=== PATIENT | male | born 1965 | race Caucasian/White ===

== ENCOUNTER → 2017-06-24 | Day surgery (SDC) | payer BC ==
--- NOTE | 2017-06-20 16:20 | Diagnostic Imaging Report ---
PROCEDURE: X-RAY CHEST, TWO VIEWS COMPARISON: None. INDICATIONS: PRE-OP ON LEFT FOOT FINDINGS: LUNGS: Well-inflated. No mass or infiltrate. PLEURA: No effusions or pneumothorax. HEART \T\ MEDIASTINUM: The heart is within normal size-limits. BONES \T\ SOFT TISSUES: No focal osseous lesions. There are mild degenerative changes of the thoracic spine. Soft tissues are unremarkable.. CONCLUSION: No acute thoracic abnormality. Dictated by: Karishma Pryor M.D. on 06/20/2017 at 16:20 Electronically approved by: Karishma Pryor M.D. on 06/20/2017 at 16:20
[~2017-06-24] MED LIST: BUPIVACAINE HCL 0.5% 10ML MPF VIAL INJ ONE; CEFAZOLIN SOD 2 GM/D5W 50ML 50 ML IV ONE; DEXAMETHASONE SOD PHOS INJ 4 MG/ML VIAL ONE; FENTANYL CITRATE/PF 100MCG/2 ML INJ ONE; LIDOCAINE HCL 2% LOCAL INJ 5 ML SDV VIAL INJ ONE; MIDAZOLAM HCL 2 MG/2 ML VIAL ONE; NEOSTIGMINE 1 MG/ML 10ML VIAL ONE; ONDANSETRON HCL INJ 2 MG/ML VIAL ONE; PROPOFOL IV EMULSION 10 MG/ML 20 ML VIAL ONE; SEVOFLURANE INHAL SOLN 250 ML PEN BTL ONE
--- OUTSIDE RECORDS SUMMARY | 2017-06-24 05:57 | XMS REPORT ---
Author Author [facility] Address Unknown Phone Unavailable Care Team Providers Care Tour Counselor Name Role Phone CHRISTA DAWKINS Unavailable Unavailable Problems This patient has no known problems. Allergies, Adverse Reactions, Alerts This patient has no known allergies or adverse reactions. Medications This patient has no known medications. Results Test Description Test Time Test Comments Text Results Atomic Results Result Comments CHEST 2 VIEWS [place] [id number] Patient Name: NICOL RCOHA MR #: [id number] : 1965 Age/Sex: 51/M Req #: [id number] Adm Physician: Ordered by: CHRISTA DAWKINS DPM Report #: [id number] Location: OR Room/Bed: Procedure: [id number] DX/CHEST 2 VIEWS Exam Date: 06/20/17 Exam Time: 1545 REPORT STATUS: Signed PROCEDURE: X-RAY CHEST, TWO VIEWS COMPARISON: None. INDICATIONS: PRE-OP ON LEFT FOOT FINDINGS: LUNGS: Well-inflated. No mass or infiltrate. PLEURA: No effusions or pneumothorax. HEART T MEDIASTINUM: The heart is within normal size-limits. BONES T SOFT TISSUES: No focal osseous lesions. There are mild degenerative changes of the thoracic spine. Soft tissues are unremarkable.. CONCLUSION: No acute thoracic abnormality. Dictated by: Bibiana Pryor M.D. on 06/20/2017 at 16: 20 Electronically approved by: Bibiana Pryor M.D. on 06/20/2017 at 16:20 Dictated By: BIBIANA PRYOR MD 162 Transcribed By: JOSHUA on 06/20/17 162 COPY TO: CHRISTA DAWKINS DPM
--- NOTE | 2017-07-14 00:53 | Operative Report ---
DATE OF PROCEDURE: June 24, 2017 PREOPERATIVE DIAGNOSES: 1. Hammertoe with bone spurs, fourth and fifth digits, left foot. 2. Hallux abductovalgus deformity, left foot with degenerative joint disease. POSTOPERATIVE DIAGNOSES: 1. Hammertoe with bone spurs, fourth and fifth digits, left foot. 2. Hallux abductovalgus deformity, left foot with degenerative joint disease. TITLE OF THE OPERATIONS: 1. Arthroplasty with exostectomy, digits 4 and 5 of the left foot. 2. Modified Ascencion bunionectomy with exostectomy, left foot. ANESTHESIA: General endotracheal. HEMOSTASIS: Left thigh tourniquet at 350 mmHg. PROCEDURE IN DETAIL: The patient was taken to the operating room in a mildly sedated state and placed upon the operating room table in supine position. Following induction of general anesthetic, the left lower extremity was elevated to 60 degrees to exsanguinate before inflating the pneumatic thigh tourniquet to 350 mmHg to create hemostasis. Left lower extremity was placed upon the operation room table prior to performing the following procedure: Procedure #1. Modified Ascencion bunionectomy of the left foot. A linear longitudinal incision was made across the dorsomedial aspect of the first metatarsophalangeal joint of the left foot. The incision was deepened via sharp and blunt dissection down to the level of the dorsal capsular structure. Care was taken to identify and retract all vital structures encountered. Head of the first metatarsal was delivered into surgical site and remodeled utilizing oscillating saw. Co-joined tendon of the abductor hallucis muscle was identified and tenotomized. A [id number] V osteotomy was placed at the apex distally and base proximally, which allowed for relative shift lateral-lopes and more proximally of the head on the more proximal segment, which was then impacted and stabilized with 2 cortical bone screws. Dorsal and medial eminence were noted to be significantly hypertrophic, remodeled with oscillating saw and rotary bur. The head of the cartilage was noted to be adequate. The area was irrigated with copious amounts of sterile saline solution. Deep closure was 3-0 Vicryl, capsular repair was 3-0 Vicryl as well, skin closure 4-0 Vicryl and 4-0 nylon. The areas of surgery were all blocked with 0.5 Marcaine and Decadron [place]. Attention was then directed to the fourth and fifth digits for arthroplasties. A linear longitudinal incision was made along the head of the proximal phalanx. Medial aspect of the fifth digit and lateral aspect of the fourth digit, both areas were treated with exostectomy and arthroplasty utilizing bone removal technique with oscillating saw and reciprocating rasp. The area was irrigated with copious amounts of sterile saline solution. Deep closure was 3-0 Vicryl, skin closure 4-0 Vicryl and 4-0 nylon. These areas of surgery were all blocked with 0.5 Marcaine and Decadron LA. Human tissue allograft was also injected. Release of the pneumatic thigh tourniquet showed a normal hyperemic flush to all digits of the left foot, and patient left the operating room with vital signs stable and in apparent satisfactory condition having tolerated both the anesthetic and procedure very well. Job#: [id number]
== END | disposition home or self-care (01) ==
LOC: OR 05:54
PROVIDERS: ATTEND Podiatrist Foot Surgery
DX: M20.12 Hallux valgus (acquired), left foot (principal); M20.42 Other hammer toe(s) (acquired), left foot; M19.072 Primary osteoarthritis, left ankle and foot; M77.52 Other enthesopathy of left foot and ankle; Z01.810 Encounter for preprocedural cardiovascular examination; Z01.818 Encounter for other preprocedural examination
CPT/HCPCS: 28285 ×2; 28296; 71046; 93005; J1100; J2001; J2250; J2405; J2710; L8699; Q4100; 76000

== ENCOUNTER 2020-07-10 09:16 | Emergency (ER) | payer BC ==
[~2020-07-10] VITALS: Ht 188 cm; Wt 120.7 kg
[2020-07-10] MEDS ORDERED: KETOROLAC TROMETHAMINE 30 MG/ML VIAL IV STA (10:06)
[2020-07-10] MEDS ORDERED: NAPROSYN500 MG PO (11:28)
[2020-07-10] MEDS ORDERED: KETOROLAC TROME10 MG PO (11:53)
[2020-07-10] MEDS ORDERED: FLOMAX0.4 MG PO (11:53)
== END 2020-07-10 11:50 | disposition home or self-care (01) ==
LOC: FSED 10:08
DX: R10.9 Unspecified abdominal pain (principal); M54.5 Low back pain; N20.2 Calculus of kidney with calculus of ureter
CPT/HCPCS: 74176; 80053; 81003; 85025; 99284; J1885

== ENCOUNTER → 2024-11-23 | Day surgery (SDC) | payer BC ==
[2024-11-20 13:17] LABS: BASOPHILS % 0.5 % (0.0-1.0); EOSINOPHILS % 2.9 % (0.0-6.0); LYMPHOCYTES % 29.7 % (18.0-39.1); MONOCYTES % 7.3 % (4.4-11.3); NEUTROPHILS % 59.3 % (38.7-80.0); RED CELL DISTRIBUTION WIDTH 13.1 % (11.7-14.4)
[2024-11-20 13:58] LABS: EST GLOMERULAR FILTRATION RATE 89.0 ML/MIN (>=60)
[~2024-11-23] MED LIST changes: +ACETAMINOPHEN 1000 MG/100 ML 100 ML IV ONE; -BUPIVACAINE HCL 0.5% 10ML MPF VIAL INJ ONE; -CEFAZOLIN SOD 2 GM/D5W 50ML 50 ML IV ONE; +CHLORTHALIDONE25 MG; +DEXAMETHASONE SOD PHOS INJ 4 MG/ML SDV ONE; -DEXAMETHASONE SOD PHOS INJ 4 MG/ML VIAL ONE; -FENTANYL CITRATE/PF 100MCG/2 ML INJ ONE; +FLOMAX0.4 MG PO; +HYDROCODONE/APAP 7.5MG-325MG 1 EA TAB ONE; +KETOROLAC TROME10 MG PO; +KETOROLAC TROMETHAMINE 30 MG/ML VIAL ONE; -MIDAZOLAM HCL 2 MG/2 ML VIAL ONE; +NAPROSYN500 MG PO; -NEOSTIGMINE 1 MG/ML 10ML VIAL ONE; -ONDANSETRON HCL INJ 2 MG/ML VIAL ONE; +ONDANSETRON HCL INJ 2MG/ML 2ML 2 MG/ML VIAL ONE; +POTASSIUM; +PROSTATE HEALT1 EAC2; +[UNRECOGNIZED DRUG - OTHER]
[2024-11-23] MEDS: LACTATED RINGER'S 1,000 ML ONE (09:03)
[2024-11-23 11:08] VITALS: TEMP 97.4
[2024-11-23] MEDS: ONDANSETRON HCL INJ 2MG/ML 2ML 2 MG/ML VIAL IV ONE (11:44)
[2024-11-23] MEDS: HYDROCODONE/APAP 7.5MG-325MG 1 EA TAB PO ONE (11:50)
[2024-11-23 12:10] VITALS: BP 149/89; PULSE 57; RESP 16; O2SAT 99
== END | disposition home or self-care (01) ==
LOC: OR 08:08
PROVIDERS: ATTEND Podiatrist Foot Surgery
DX: M20.41 Other hammer toe(s) (acquired), right foot (principal); M79.2 Neuralgia and neuritis, unspecified; M21.6X1 Other acquired deformities of right foot; Z79.1 Long term (current) use of non-steroidal anti-inflammatories (NSAID); Z01.810 Encounter for preprocedural cardiovascular examination; Z01.812 Encounter for preprocedural laboratory examination
CPT/HCPCS: 28285; 28308; 36415; 64704; 64727; 80048; 85025; 93005; C1713 ×4; J0131; J0690; J1100; J1885; J2003; J2405; J2704; J7121